=== PATIENT | female | born 1975 | race Caucasian/White ===

== ENCOUNTER 2022-04-22 17:38 | Emergency (ER) | payer MEDICARE, MEDICAID, SELFPAY ==
--- NOTE | 2022-04-22 17:40 | ED.URI ---
HPI - URI/Sore Throat General Chief Complaint: Allergic Reaction Stated Complaint: swollen lips and tongue Time Seen by Provider: 04/22/22 17:40 Source: patient and RN notes reviewed History of Present Illness HPI Narrative: Patient is a 47-year-old female who presents the urgent care with complaints of swollen lips. Patient states that she woke up this morning with swollen lips. States that this is happened in the past when her dog was licking her face and assumed it was due to him taking Apoquel for a skin condition. Patient did not take anything for her swelling and decided to take a nap. States that she woke up with her lip still swollen. Patient states this is happened twice before and she is unsure of why but was woken up at those times with her dog licking her. Patient states that she did use a new lip gloss yesterday but denies of any new foods or other products. Patient states in the past when this happened she took Zyrtec and steroids and improved. Denies of any shortness of breath, difficulty swallowing or breathing. Denies of chest pain. No other acute complaints. No acute distress noted. Patient aware of the plan of care. Some parts of this dictation were generated by voice recognition software and may contain typographical and/or grammatical inaccuracies. Related Data Home Medications Medication Instructions Recorded Confirmed alprazolam 1 mg tablet 1 mg PO DAILY 04/22/22 04/22/22 folic acid 1 mg tablet 1 mg PO DAILY 04/22/22 04/22/22 golimumab 50 mg/0.5 mL 50 mg subcut MONTHLY 04/22/22 04/22/22 subcutaneous pen injector (Simponi) hydroxychloroquine 200 mg tablet 200 mg PO BID 04/22/22 04/22/22 methotrexate sodium (PF) 25 mg/mL 25 mg IM WEEKLY 04/22/22 04/22/22 injection solution pantoprazole 40 mg tablet,delayed 40 mg PO DAILY 04/22/22 04/22/22 release promethazine 25 mg tablet 25 mg PO TID PRN Motion Sickness 04/22/22 04/22/22 quetiapine 50 mg tablet 100 mg PO DAILY 04/22/22 04/22/22 triamcinolone acetonide 0.1 % 1 applic topical BID 04/22/22 04/22/22 topical ointment Allergies Allergy/AdvReac Type Severity Reaction Status Date / Time diphenhydramine AdvReac Intermediate Anxiety Verified 04/22/22 18:00 [From [facility]] prochlorperazine AdvReac Intermediate Anxiety Verified 04/22/22 18:01 [From Compazine] Review of Systems Review of Systems: CONSTITUTIONAL: Denies fever, chills, or sweats. EYES: Denies visual changes, redness, or discharge. ENT: Denies rhinorrhea, congestion, sore throat, or otalgia. Reports of swollen upper lip CARDIOVASCULAR: Denies chest pain, palpitations, or edema. RESPIRATORY: Denies cough or dyspnea. GASTROINTESTINAL: Denies abdominal pain, nausea, vomiting, or diarrhea. GENITOURINARY: Denies dysuria or hematuria. SKIN: Denies rash or itching. MUSCULOSKELETAL: Denies back pain, joint pain, or myalgia. NEUROLOGIC: Denies headache, numbness, or weakness. All other systems reviewed are negative, except as documented in HPI. PMFSH Comments At the time of my signature, I reviewed and agree with the nursing past medical, surgical, social, and family history. There is no relevant family history pertinent to the patient complaint. Exam Narrative: GENERAL: This is a well-nourished, well-developed patient, in no apparent distress. HEAD: normocephalic, atraumatic. EYES: PERRL. Sclera clear/white. Vision is grossly intact. EARS: External ears normal, auditory canals clear and without drainage, TMs normal without perforation. Hearing grossly intact. NOSE: External nose normal with no obvious nasal discharge, nares without redness, no rhinorrhea. THROAT: Mucous membranes moist, posterior pharynx clear. Patent airway. Mild edema noted to the upper lip NECK: Neck supple, non-tender without lymphadenopathy CARDIOVASCULAR: Regular rate and rhythm without murmurs, gallops, or rubs. RESPIRATORY: Clear to auscultation. Breath sounds equal bilaterally. No wheezes, rales, or rho
[2022-04-22 17:46] VITALS: BP 103/73; PULSE 60; RESP 20; TEMP 36.4; O2SAT 100
[2022-04-22] MEDS: predniSONE 20 MG TABLET 60 MG PO (18:13)
== END 2022-04-22 18:28 | disposition home or self-care (01) ==
PROVIDERS: Emergency Provider Nurse Practitioner Family; PCP Internal Medicine Gastroenterology
DX: R22.0 Localized swelling, mass and lump, head (principal); I48.91 Unspecified atrial fibrillation; Z98.84 Bariatric surgery status; M06.9 Rheumatoid arthritis, unspecified; D86.9 Sarcoidosis, unspecified
CPT/HCPCS: 99213; G0463; J7512

== ENCOUNTER 2023-07-22 11:03 | Emergency (ER) | payer MEDICARE, MEDICAID, SELFPAY ==
[2023-07-22 11:16] VITALS: BP 129/68; PULSE 82; RESP 16; TEMP 36.8; O2SAT 99
--- NOTE | 2023-07-22 11:47 | ED.FEMALEGU ---
HPI - Female Genitourinary General Chief complaint: Urogenital-Female Stated complaint: Urinary Problems Time Seen by Provider: 07/22/23 11:47 Source: patient, RN notes reviewed and old records reviewed Mode of arrival: ambulatory Limitations: no limitations History of Present Illness HPI Narrative: 48-year-old female presents to the [facility] with complaints of 1 and half weeks of urinary frequency and urgency with occasional burning. States he only drinks a cup of coffee in the morning. Denies drinking other caffeine States she has recently changed to lubricant during sex, denies any chances of an STD. Denies any abdominal pain. No CVA tenderness. Denies fevers Related Data Home Medications Medication Instructions Recorded Confirmed albuterol sulfate 90 mcg/actuation 2 puff inhalation Q4-6H PRN 04/22/22 04/22/22 aerosol inhaler Shortness Of Breath Or Wheezing alprazolam 1 mg tablet 1 mg PO DAILY 04/22/22 04/22/22 benztropine 0.5 mg tablet 0.5 mg PO BID 04/22/22 04/22/22 brexpiprazole 1 mg tablet (Rexulti) 1 mg PO DAILY 04/22/22 04/22/22 colchicine 0.6 mg tablet 0.6 mg PO BID 04/22/22 04/22/22 escitalopram oxalate 10 mg tablet 10 mg PO DAILY 04/22/22 04/22/22 folic acid 1 mg tablet 1 mg PO DAILY 04/22/22 04/22/22 gabapentin 800 mg tablet 800 mg PO TID 04/22/22 04/22/22 golimumab 50 mg/0.5 mL 50 mg subcut MONTHLY 04/22/22 04/22/22 subcutaneous pen injector (Simponi) hydroxychloroquine 200 mg tablet 200 mg PO BID 04/22/22 04/22/22 hydroxyzine pamoate 25 mg capsule 25 mg PO TID 04/22/22 04/22/22 ixekizumab 80 mg/mL subcutaneous 80 mg subcut MONTHLY 04/22/22 04/22/22 auto-injector (Taltz Autoinjector) methotrexate sodium (PF) 25 mg/mL 25 mg IM WEEKLY 04/22/22 04/22/22 injection solution montelukast 10 mg tablet 10 mg PO DAILY 04/22/22 04/22/22 pantoprazole 40 mg tablet,delayed 40 mg PO DAILY 04/22/22 04/22/22 release promethazine 25 mg tablet 25 mg PO TID PRN Motion Sickness 04/22/22 04/22/22 quetiapine 50 mg tablet 100 mg PO DAILY 04/22/22 04/22/22 triamcinolone acetonide 0.1 % 1 applic topical BID 04/22/22 04/22/22 topical ointment Allergies Allergy/AdvReac Type Severity Reaction Status Date / Time diphenhydramine AdvReac Intermediate Anxiety Verified 04/22/22 18:00 [From Benadryl] prochlorperazine AdvReac Intermediate Anxiety Verified 04/22/22 18:01 [From Compazine] Review of Systems Review of Systems: All systems reviewed & are unremarkable except as noted in HPI and below Constitutional: Constitutional: Reports no additional constitutional complaints Eyes: Eyes: Reports no additional eye complaints ENT: Reports system reviewed and no additional complaints, except as documented Cardiovascular: Cardiovascular: Reports no additional cardiovascular complaints, Denies chest pain and Denies dyspnea Respiratory: Respiratory: Reports no additional respiratory complaints, Denies chest congestion, Denies cough and Denies dyspnea Gastrointestinal: Gastrointestinal: Reports no additional gastrointestinal complaints, Denies abdominal pain, Denies nausea and Denies vomiting Genitourinary: Genitourinary: Reports as per HPI Musculoskeletal: Musculoskeletal: Reports no additional musculoskeletal complaints Integumentary/Breasts: Skin/Breast: Reports system reviewed and no additional complaints, except as docu Neurologic: Reports system reviewed and no additional complaints, except as documented Psychiatric: Psychiatric: Reports no additional psychiatric complaints Allergic/Immunologic: Allergic/Immunologic: Reports no additional allergic/immunologic complaints PMFSH Comments At the time of my signature, I reviewed and agree with the nursing past medical, surgical, social, and family history. There is no relevant family history pertinent to the patient complaint. Exam Const: General: cooperative, healthy appearing, comfortable, no acute distress, well developed, alert and well nourished Nutriti
== END 2023-07-22 11:57 | disposition home or self-care (01) ==
PROVIDERS: Emergency Provider Nurse Practitioner
DX: R30.0 Dysuria (principal); I48.91 Unspecified atrial fibrillation; M06.9 Rheumatoid arthritis, unspecified; D86.9 Sarcoidosis, unspecified; Z98.84 Bariatric surgery status
CPT/HCPCS: 81003; 87086; 87088; 99213; G0463

== ENCOUNTER 2023-12-09 13:18 | Emergency (ER) | payer MEDICARE, MEDICAID, SELFPAY ==
[2023-12-09 13:36] VITALS: BP 104/64; PULSE 78; RESP 16; TEMP 37; O2SAT 99
--- NOTE | 2023-12-09 13:59 | ED.URI ---
HPI - URI/Sore Throat General Chief Complaint: Upper Respiratory Infection Stated Complaint: Cough/Chest Congestion Source: patient Mode of arrival: ambulatory Limitations: no limitations History of Present Illness MD elicited complaint: cough and sore throat Related Data Home Medications Medication Instructions Recorded Confirmed albuterol sulfate 90 mcg/actuation 2 puff inhalation Q4-6H PRN 04/22/22 04/22/22 aerosol inhaler Shortness Of Breath Or Wheezing alprazolam 1 mg tablet 1 mg PO DAILY 04/22/22 04/22/22 benztropine 0.5 mg tablet 0.5 mg PO BID 04/22/22 04/22/22 brexpiprazole 1 mg tablet (Rexulti) 1 mg PO DAILY 04/22/22 04/22/22 colchicine 0.6 mg tablet 0.6 mg PO BID 04/22/22 04/22/22 escitalopram oxalate 10 mg tablet 10 mg PO DAILY 04/22/22 04/22/22 folic acid 1 mg tablet 1 mg PO DAILY 04/22/22 04/22/22 gabapentin 800 mg tablet 800 mg PO TID 04/22/22 04/22/22 golimumab 50 mg/0.5 mL 50 mg subcut MONTHLY 04/22/22 04/22/22 subcutaneous pen injector (Simponi) hydroxychloroquine 200 mg tablet 200 mg PO BID 04/22/22 04/22/22 hydroxyzine pamoate 25 mg capsule 25 mg PO TID 04/22/22 04/22/22 ixekizumab 80 mg/mL subcutaneous 80 mg subcut MONTHLY 04/22/22 04/22/22 auto-injector (Taltz Autoinjector) methotrexate sodium (PF) 25 mg/mL 25 mg IM WEEKLY 04/22/22 04/22/22 injection solution montelukast 10 mg tablet 10 mg PO DAILY 04/22/22 04/22/22 pantoprazole 40 mg tablet,delayed 40 mg PO DAILY 04/22/22 04/22/22 release promethazine 25 mg tablet 25 mg PO TID PRN Motion Sickness 04/22/22 04/22/22 quetiapine 50 mg tablet 100 mg PO DAILY 04/22/22 04/22/22 triamcinolone acetonide 0.1 % 1 applic topical BID 04/22/22 04/22/22 topical ointment Allergies Allergy/AdvReac Type Severity Reaction Status Date / Time diphenhydramine AdvReac Intermediate Anxiety Verified 04/22/22 18:00 [From Benadryl] prochlorperazine AdvReac Intermediate Anxiety Verified 04/22/22 18:01 [From Compazine] Review of Systems Review of Systems: CONSTITUTIONAL: Denies malaise, chills, sweats, or fever. EYES: Denies visual changes, redness, or discharge. ENT: Reports rhinorrhea, congestion, sinus pain, otalgia and sore throat. CARDIOVASCULAR: Denies chest pain, palpitations, or edema. RESPIRATORY: Reports cough.? Denies dyspnea. GASTROINTESTINAL: Denies abdominal pain, nausea, vomiting, diarrhea SKIN: Denies rash or itching. MUSCULOSKELETAL: Denies myalgia. NEUROLOGIC: Denies headache. All systems reviewed & are unremarkable except as noted in HPI and below PMFSH Comments At time of signature, agree with nursing past medical, surgical, social and family history. There is no relevant family history pertinent to the presenting complaint Exam Narrative: GENERAL: Well-appearing, well-nourished, and in no acute distress. HEAD: Normocephalic EYES: PERRLA, conjunctivae clear ENT: Nares clear, turbinates edematous and erythematous, clear discharge. Mucous membranes moist. TM pearly lucio with dull light reflex bilaterally; no tragal tenderness. Oropharynx erythematous without lesions. Tonsils not enlarged and without exudate, no drooling, no hoarseness, no trismus, uvula midline. NECK: Supple. No lymphadenopathy CHEST: Clear to auscultation, breath sounds equal. No wheezing, rhonchi, rales, or stridor. No respiratory distress, speaks in full sentences. HEART: Regular rate and rhythm. No murmur heard. SKIN: Warm, dry, no rash. NEURO: Alert and oriented x3. PSYCH: Normal mood and affect Course Course Emergency Course: Patient is aware of diagnosis, understands and agrees to treatment plan.? Anticipatory guidance given.? Patient agrees to follow-up as directed and is aware of reasons to seek care at the emergency department. Portions of this record may have been created with voice recognition software Level of Care: Express Care Visit Vital Signs Vital signs: Vital Signs Temperature 37.0 C 04/
== END 2023-12-09 14:15 | disposition left against medical advice (07) ==
PROVIDERS: Emergency Provider Registered Nurse
DX: Z53.21 Procedure and treatment not carried out due to patient leaving prior to being seen by health care provider (principal)
CPT/HCPCS: 99199